=== PATIENT | male | born 1980 | race Caucasian/White ===

== ENCOUNTER 2016-07-18 21:39 | Emergency (ER) | payer OTHER ==
[2016-07-18] MEDS ORDERED: LEXAPRO20 M2 PO (22:16)
[2016-07-18] MEDS ORDERED: MEN'S MULTI-VI1 EACH PO (22:17)
[2016-07-18] MEDS ORDERED: SUPER B COMPLE150 M1 PO (22:17)
[2016-07-18] MEDS ORDERED: TRAMADOL HCL50 M2 PO (23:43)
== END 2016-07-18 23:42 ==
LOC: EDMED 21:39
DX: S92.532A Displaced fracture of distal phalanx of left lesser toe(s), initial encounter for closed fracture (principal); F41.9 Anxiety disorder, unspecified; Z79.899 Other long term (current) drug therapy; W22.8XXA Striking against or struck by other objects, initial encounter; Y92.69 Other specified industrial and construction area as the place of occurrence of the external cause
CPT/HCPCS: J2270